=== PATIENT | male | born 1985 | race Caucasian/White ===

== ENCOUNTER 2018-11-29 15:12 | Emergency (ER) | payer MEDICAID ==
[~2018-11-29] VITALS: Ht 188 cm; Wt 129.9 kg
[2018-11-29 15:46] VITALS: BP 144/91
== END 2018-11-29 16:36 | disposition home or self-care (01) ==
LOC: ED 16:05
DX: J30.9 Allergic rhinitis, unspecified (principal)
CPT/HCPCS: 99283